=== PATIENT | male | born 1960 | race African-American/Black ===

== ENCOUNTER 2016-08-06 13:11 | Emergency (ER) | payer OTHER ==
[~2016-08-06] VITALS: Ht 182.9 cm; Wt 77.1 kg
[2016-08-06 14:07] VITALS: BP 146/84
[2016-08-06] MEDS ORDERED: SPIRIVA18 MCG INH (14:15)
[2016-08-06] MEDS ORDERED: ALBUTEROL SULF8.5 GM INH (14:15)
--- NOTE | 2016-08-06 14:31 | Emergency Room Report ---
History of Present Illness General Chief Complaint: Sore Throat Source: Patient Present Illness HPI 55 YO male Pt. presents to the ED c/o : sore throat, right-sided tonsillar swelling, with fevers and chills x 2 days . pain localized to right side of the throat and rated at 10/10 in severity. Patient also reports painful swallowing, difficulty talking and changes in voice. Patient denies taking medications for his symptoms. he denies history of immunocompromise. Pt reports difficulty breathing when lying flat last night. Denies recent travel or ill contacts. Denies CP, Palpitations, LOC, AMS, dizziness, Changes in Vision, Sensation, paresthesias, or a sudden severe headache. Pt reports hx of COPD with SOB with intermittent right sided sharp pain in the lower rib cage, denies trauma or fall. denies pain at this time. Allergies: Uncoded Allergies: FISH (Allergy, Unknown, 08/06/16) NUTS (Allergy, Unknown, 08/06/16) Patient History Past Medical History: see triage record Past Surgical History: none Pertinent Family History: none Immunizations: UTD Reviewed Nursing Documentation: PMH: Agreed, PSxH: Agreed Nursing Documentation-PMH Past Medical History: No History, Except For Hx Asthma: Yes Hx COPD: Yes Review of Systems All Other Systems: negative except mentioned in HPI Physical Exam Vital Signs Date Time Temp Pulse Resp B/P Pulse Ox O2 Delivery O2 Flow Rate FiO2 08/06/16 14:07 99.0 103 18 146/84 96 Room Air Sp02 EP Interpretation: reviewed, abnormal - Pt is tachycardic. General Appearance: no apparent distress, alert, GCS 15, non-toxic Head: normocephalic, atraumatic Eyes: bilateral eye PERRL, bilateral eye normal inspection ENT: hearing grossly normal, normal pharynx, no angioedema, TMs + canals normal , moist mucus membranes, pharyngeal erythema, other - uvula is midline however notable swelling to the right soft palate compared to the left suspicious for ATHLETIC EQUIPMENT MANAGER, significant erythema of the pharynx, no exudates, no petichae. Neck: full range of motion, no meningismus, no bony tend, supple/symm/no masses Respiratory: chest non-tender, lungs clear, normal breath sounds, no rhonchi, no respiratory distress, no retraction, no accessory muscle use, no wheezing, speaking full sentences Cardiovascular #1: regular rate, rhythm, no edema Gastrointestinal: normal bowel sounds, non tender, soft, no guarding, no rebound Rectal: deferred Genitourinary: normal inspection, no CVA tenderness Musculoskeletal: back normal, gait/station normal, normal range of motion, non- tender, no calf tenderness Neurologic: alert, oriented x3, responsive, motor strength/tone normal, sensory intact, speech normal Psychiatric: judgement/insight normal, memory normal, mood/affect normal, no suicidal/homicidal ideation Reflexes: 4+ bicep (R), 4+ bicep (L), 4+ tricep (R), 4+ tricep (L), 4+ knee (R) , 4+ knee (L) Skin: normal color, no rash, warm/dry, well hydrated Lymphatic: no adenopathy Procedures Incision and Drainage Incision and Drainage : Consent: Verbal Site: right soft palate Blade Size: 18 guage spinal needle Wound Location: other - right soft palate Wound's Depth, Shape: superficial Wound Length (cm): 0 Wound Explored: clean Anesthesia: other - catecaine spray Splint Applied?: No Sling Applied?: No Patient Tolerated: Well Complications: None Progress -Two attempts were made to Aspirate the ATHLETIC EQUIPMENT MANAGER using an 18g Spinal needle using the cover to provide a half inch guard. Cetacaine spray was used for local anesthesia, good anesthetic results were achieved. Both attempts were unsuccessful in retrieving purulent fluid. Pt. tolerated well there were no complications. Medical Decision Making PA Attestation Dr. rashid is my supervising Physician whom patient management has been discussed with. Diagnostic Impression: Primary Impression: Peritonsillar abscess ER Course Pt. presents to the ED c/o : sore throat, right-sided tonsillar swelling, with fevers and chills x 2 days . Patient also reports sharp right-sided rib cage pain stabbing in nature and difficulty breathing times one day. Patient states he has a history of COPD and last night had a hard time breathing when he was lying down. Ddx considered but are not limited to: pharyngitis, strep, ATHLETIC EQUIPMENT MANAGER, ludwigs angina, URI, PE, pneumonia Vital signs: are WNL, pt. is afebrile H&PE are most consistent with: possible ATHLETIC EQUIPMENT MANAGER will do imaging. PE was of very low suspicion. ORDERS: -CT soft tissue Neck with contrast: right ATHLET[employer] EQUIPMENT MANAGER noted per official radiology report- please see official report for exact measurements. -D-Dimer: canceled as pt. not having pain or difficulty breathing at this time. wells criteria is essentially zero, pt. only symptom was tachycardia which is more related to acute infection. -CBC: leukocytosis 17.9 -BMP: unremarkable, pt has good renal function and is able to receive contrast. ED INTERVENTIONS: -1.5g Unasyn IVP -1000cc NS IV bolus -8mg Decadron IM -15mg Toradol Iv -Two attempts were made to Aspirate the ATHLET[employer] EQUIPMENT MANAGER using an 18g Spinal needle using the cover to provide a half inch guard. Cetacaine spray was used for local anesthesia, good anesthetic results were achieved. Both attempts were unsuccessful in retrieving purulent fluid. Pt. tolerated well there were no complications. -Discussed with patient that he needs to continue oral antibiotics as an outpatient and will need followup with ENT specialist for drainage of ATHLETIC EQUIPMENT MANAGER. DISCHARGE: At this time pt. is stable for d/c to home. Will provide printed patient care instructions, and any necessary prescriptions. Care plan and follow up instructions have been discussed with the patient prior to discharge. Last Vital Signs Date Time Temp Pulse Resp B/P Pulse Ox O2 Delivery O2 Flow Rate FiO2 08/06/16 14:07 99.0 103 18 146/84 96 Room Air Disposition: HOME, SELF-CARE Condition: Serious Scripts Ibuprofen* (MOTRIN*) 600 Mg Tablet 600 MG ORAL THREE TIMES A DAY, #30 TAB 0 Refills Prov: Sydney Gutierrez 08/06/16 Hydrocodone Bit/Acetaminophen 5-325* (NORCO 5-325*) 1 Each Tablet 1 TAB ORAL Q6H Y for For Pain, #10 TAB 0 Refills Prov: Sydney Gutierrez 08/06/16 Amoxicillin* (AMOXIL*) 500 Mg Capsule 500 MG ORAL BID for 10 Days, #20 CAP Prov: Sydney Gutierrez 08/06/16 Patient Instructions: Peritonsillar Abscess Additional Instructions: Take medications as directed. Follow up with ENT Specialist in 3-5 days, for evaluation and possible drainage. Return sooner to ED if new symptoms occur, or current symptoms become worse. Sydney Gutierrez Aug 06, 2016 14:31
[2016-08-06 15:00] LABS: EOSINOPHILS % (AUTO) 0.4 % (0.0-3.0); LYMPHOCYTES % (AUTO) 8.8 % (20.0-45.0); MEAN CORPUSCULAR HEMOGLOBIN 27.9 PG (27.0-31.0); MEAN CORPUSCULAR HGB CONC 32.1 G/DL (32.0-36.0); MEAN CORPUSCULAR VOLUME 87 FL (80-99); MEAN PLATELET VOLUME 9.3 FL (6.5-10.1); MONOCYTES % (AUTO) 15.4 % (1.0-10.0); NEUTROPHILS % (AUTO) 74.4 % (45.0-75.0); PLATELET COUNT 251 K/UL (150-450); RED BLOOD COUNT 5.15 M/UL (4.70-6.10); RED CELL DISTRIBUTION WIDTH 13.3 % (11.6-14.8); WHITE BLOOD COUNT 17.9 K/UL (4.8-10.8)
[2016-08-06 15:18] VITALS: BP 141/78
[2016-08-06 16:09] LABS: ANION GAP 21 (5-15); CALCIUM 9.5 mg/dL (8.6-10.2); CARBON DIOXIDE 24 mEQ/L (20-30); CHLORIDE 90 mEQ/L (98-107); CREATININE 1.3 mg/dL (0.7-1.2); GLOMERULAR FILTRATION RATE > 60 mL/min (>60); HEMOLYSIS 0; POTASSIUM 4.2 mEQ/L (3.4-4.9); SODIUM 135 mEQ/L (135-145)
[2016-08-06] MEDS ORDERED: Unasyn 1.5gm Vial ONE (16:29)
[2016-08-06] MEDS ORDERED: AMPICILLIN IVPB SCH (16:30)
[2016-08-06] MEDS ORDERED: SULBACTAM SOD IVPB SCH (16:30)
[2016-08-06] MEDS ORDERED: NS IVPB SCH (16:30)
[2016-08-06] MEDS ORDERED: Dexamethasone 4mg/ml vial IM ONE (16:45)
[2016-08-06] MEDS: Cetacaine Spray 50ml Btl TOPIC ONE ×2 (17:23→17:25)
[2016-08-06] MEDS ORDERED: Hydrogen Peroxide 120ml Bottle TOPIC ONE ×2 (17:34→17:45)
[2016-08-06] MEDS ORDERED: Ketorolac 30mg Inj IV ONE (18:00)
[2016-08-06] MEDS ORDERED: IBUPROFEN600 MG ORAL (18:08)
[2016-08-06] MEDS ORDERED: AMOXICILLIN500 MG ORAL (18:08)
[2016-08-06] MEDS ORDERED: NORCO 5-325 TA1 EACH ORAL (18:08)
[2016-08-06 18:18] VITALS: BP 144/68
--- NOTE | 2016-08-07 08:29 | Diagnostic Imaging Report ---
Indication: Right-sided neck throat pain 3 days Technique: Continuous helical imaging of the neck was obtained transaxially from the skull base to the upper thoracic spine during intravenous administration of nonionic contrast. 2-D coronal and sagittal reformatted images were obtained. Total Dose length Product (DLP): [address] Dose Index Volume (CTDIvol): 8, 16, 20 mGy Comparison: None Findings: There is an approximately 1.5 x 1.4 x 2.2 cm low-attenuation focus demonstrated within the right palatine tonsil consistent with tonsillar abscess. There is generalized prominence of the tonsils bilaterally. Thickening of the uvula noted as well as generalized pharyngeal edema in the oral airway. The supraglottic airway is normal. The epiglottis there are there are folds appear normal. Subglottic airway is clear there is no lymphadenopathy identified. Small nodes are present within the neck. The lung apices are notable for several small cystic lucencies, nonspecific in nature, but probably postinflammatory. The glands appear normal. Impression: Evidence of tonsillitis with 1.5 x 1.4 x 2.2 CM right peritonsillar abscess. Small nodes throughout the neck likely inflammatory. Small cystic lucencies within the visualized portion of the upper lobes of the lung. Findings are nonspecific. These could be pneumatoceles area The CT scanner at [facility] is accredited by the [employer] and the scans are performed using protocols designed to limit radiation exposure to as low as reasonably achievable to attain images of sufficient resolution adequate for diagnostic evaluation.
== END 2016-08-06 18:18 | disposition home or self-care (01) ==
LOC: EMR 14:29
DX: J36 Peritonsillar abscess (principal); J44.9 Chronic obstructive pulmonary disease, unspecified; J45.909 Unspecified asthma, uncomplicated; Z91.018 Allergy to other foods
CPT/HCPCS: 10060; 36415; 70491; 80048; 85025; 85379; 96361; 96372; 96374; 96375; 99284; J1100; J1885; Q9967

== ENCOUNTER 2017-06-21 10:35 | Emergency (ER) | payer MEDICAID, OTHER ==
[~2017-06-21] VITALS: Ht 182.9 cm; Wt 74.8 kg
[~2017-06-21 10:35] MED LIST: ALBUTEROL SULF8.5 GM INH; AMOXICILLIN500 MG ORAL; IBUPROFEN600 MG ORAL; NORCO 5-325 TA1 EACH ORAL; SPIRIVA18 MCG INH
[2017-06-21] MEDS ORDERED: IBUPROFEN600 MG ORAL (12:05)
[2017-06-21 12:08] VITALS: BP 132/68
[2017-06-21] MEDS ORDERED: HYDROCORTISONE-30 GM TOPIC (12:11)
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
--- NOTE | 2017-06-21 16:58 | Diagnostic Imaging Report ---
Indication: PAIN Technique: 3 views of the right knee Comparison: None Findings:There is possibly a small suprapatellar effusion. No acute fractures. No dislocations. The joint spaces are preserved. There is a small superior pole patellar traction osteophyte Impression:No acute bony trauma Possible small joint effusion
== END 2017-06-21 12:08 | disposition home or self-care (01) ==
LOC: EMR 11:18
DX: S83.91XA Sprain of unspecified site of right knee, initial encounter (principal); X50.1XXA Overexertion from prolonged static or awkward postures, initial encounter; Y92.9 Unspecified place or not applicable; Z91.018 Allergy to other foods; J44.9 Chronic obstructive pulmonary disease, unspecified
CPT/HCPCS: 99284

== ENCOUNTER 2017-08-05 10:28 | Emergency (ER) | payer MEDICAID ==
[~2017-08-05] VITALS: Ht 182.9 cm; Wt 77.1 kg
[~2017-08-05 10:28] MED LIST changes: +HYDROCORTISONE-30 GM TOPIC
[2017-08-05] MEDS ORDERED: Ketorolac 60mg Inj IM ONE (11:15)
--- NOTE | 2017-08-05 12:34 | Diagnostic Imaging Report ---
Indication: Pain Technique: XRAY Knee 3v R Comparison: 06/21/2017 Findings: There is no acute fracture or dislocation. Possible small suprapatellar knee joint effusion. There is mild osteoarthrosis of the knee with near compartment joint space narrowing and small patellar osteophytes. There is unchanged ossification in the region of the insertion of the medial collateral ligament. This may be sequela of prior traction injury. Impression: No acute fracture or dislocation. Ossification in the expected region of the medial collateral ligament insertion. This may be sequela of prior traction injury. Nonemergent MRI of the knee recommended for further evaluation.
[2017-08-05] MEDS ORDERED: IBUPROFEN600 MG ORAL (12:41)
[2017-08-05 12:53] VITALS: BP 143/68
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
== END 2017-08-05 12:56 | disposition home or self-care (01) ==
LOC: EMR 10:45
DX: S83.91XA Sprain of unspecified site of right knee, initial encounter (principal); X58.XXXA Exposure to other specified factors, initial encounter; Y92.89 Other specified places as the place of occurrence of the external cause; J44.9 Chronic obstructive pulmonary disease, unspecified; Z91.018 Allergy to other foods
CPT/HCPCS: 96372; 99283